=== PATIENT | female | born 1980 | race Caucasian/White ===

== ENCOUNTER → 2016-06-25 | Outpatient (CLI) | payer OTHER ==
--- NOTE | 2016-06-25 09:46 | US ---
Complete Abdominal Ultrasound History: Intermittent pain for 1.5 years. Comparison: None available. Findings: The liver is borderline echogenic with slightly coarsened echotexture, which could be relat ed to minimal fatty infiltration, with no focal hepatic masses. There is no intrahepatic biliary dila tation. The common bile duct measures 3 mm and is normal. The gallbladder is normal. The kidneys have normal echotexture and contour without hydronephrosis or contour deforming masses. The right kidney measures 10.2 cm and the left kidney measures 9.9 cm. The spleen is difficult to visualize due to ove rlying bowel gas, with normal appearance of the visualized spleen, measuring 9.7 cm. The visible aort a is normal caliber. The visible portions of the pancreas are normal with partial obscuration of the pancreatic head and tail by overlying bowel gas. The visible portions of the IVC are normal. Impression: No visible etiology for the patient's pain.
== END ==
LOC: BRMIMAGING 08:49
DX: R10.9 Unspecified abdominal pain (principal); R53.83 Other fatigue
CPT/HCPCS: 76700-PO